=== PATIENT | female | born 1995 | race Caucasian/White ===

== ENCOUNTER 2017-11-05 12:31 | Emergency (ER) | payer OTHER ==
[~2017-11-05] VITALS: Ht 170.2 cm; Wt 55.9 kg
[2017-11-05 12:53] VITALS: TEMP 37; Ht 170.2 cm; Wt 55.9 kg
[2017-11-05] MEDS ORDERED: SODIUM CHLORIDE 0.9% 1000ML 1,000 ML IV STA ×2 (13:24)
[2017-11-05 13:56] LABS: BASO % 0.6 %; BASO ABS # 0.04 K/uL (0-0.2); EOS % 0.5 %; EOS ABS # 0.03 K/uL (0-0.5); HEMATOCRIT 39.9 % (37-47); HEMOGLOBIN 13.4 g/dL (12.0-16.0); IG# 0.01 K/uL (0.00-0.02); LYMPH % 18.7 %; LYMPH ABS # 1.17 K/uL (1.2-3.4); MEAN CELL VOLUME 85.1 fL (80-100); MEAN CORPUSCULAR HEMOGLOBIN 28.6 pg (25-34); MEAN CORPUSCULAR HGB CONC 33.6 g/dl (32-36); MEAN PLATELET VOLUME 10.2 fL (7.4-10.4); MONO % 5.9 %; MONO ABS # 0.37 K/uL (0.11-0.59); NEUT % 74.1 %; NEUT ABS # 4.65 K/uL (1.4-6.5); PLATELET COUNT 230 K/uL (130-400); RED CELL DISTRIBUTION WIDTH CV 12.2 % (11.5-14.5); RED CELL DISTRIBUTION WIDTH SD 37.6 fL (36.4-46.3); WHITE BLOOD COUNT 6.27 K/uL (4.8-10.8)
[2017-11-05] MEDS ORDERED: OPTIRAY 320 IV PRN (14:00)
[2017-11-05 14:11] LABS: ALT/SGPT 19 U/L (12-78); AST/SGOT 16 U/L (15-37); BLOOD UREA NITROGEN 12 mg/dl (7-18); CALCIUM 9.5 mg/dl (8.5-10.1); CARBON DIOXIDE 24 mmol/L (21-32); CREATININE 0.82 mg/dl (0.60-1.20); GLUCOSE 75 mg/dl (70-99); LIPASE 113 U/L (73-393); POTASSIUM 3.7 mmol/L (3.5-5.1); SODIUM 138 mmol/L (136-145)
[2017-11-05 14:14] LABS: ALKALINE PHOSPHATASE 59 U/L (45-117); TOTAL PROTEIN 7.6 gm/dl (6.4-8.2)
--- NOTE | 2017-11-05 16:15 | DIAGNOSTIC IMAGING REPORT ---
CT ABD/PELVIS IV AND ORAL CONT CLINICAL HISTORY: Generalized abdominal pain COMPARISON STUDY: None. TECHNIQUE: Following the IV administration of 115 mL of Optiray-320, CT scan of the abdomen and pelvis was performed from the lung bases to the proximal femurs. Images are reviewed in the axial, sagittal, and coronal planes. IV contrast was administered without complication. A dose lowering technique was utilized adhering to the principles of ALARA. CT DOSE: 302.14 mGy.cm FINDINGS: Lower chest: The heart is normal in size and configuration, without pericardial effusion. The lung bases and pleural spaces are clear. Liver: The contrast-enhanced liver is normal in size, contour, and attenuation. There is no intrahepatic biliary ductal dilatation. The hepatic veins and portal veins are patent. Gallbladder: Unremarkable. Spleen: Normal in size and attenuation. Pancreas: Unremarkable. Adrenal glands: Unremarkable. Kidneys: There is symmetric renal cortical enhancement. The kidneys are normal in size without hydronephrosis. Bowel: There are no transition zones indicate bowel obstruction. There is no evidence of acute appendicitis. There is no evidence of acute diverticulitis. Peritoneum: There is no intraperitoneal free air or abdominal ascites. Vasculature: The abdominal aorta is normal in course and caliber. Adenopathy: None. Pelvic viscera: The bladder, and pelvic viscera are unremarkable. Skeletal structures: No destructive osseous lesions are seen. IMPRESSION: 1. No acute intra-abdominal or pelvic findings 2. No evidence of bowel obstruction. No evidence of free air 3. Normal appendix. No evidence of acute diverticulitis. Electronically signed by: Will Fuentes M.D. 11/05/2017 4:14 PM Dictated Date/Time: 11/05/2017 4:11 PM
[2017-11-05 16:22] VITALS: BP 97/51; PULSE 57; O2SAT 100
--- NOTE | 2017-11-05 16:25 | EMERGENCY ROOM VISIT NOTE ---
History First contact with patient: 12:58 Chief Complaint: ABDOMINAL PAIN Stated Complaint: ABD PAIN - SENT FROM [facility] Nursing Triage Summary: Pt reports lower abd pain x 2 days. N/V. Denies urinary s/sx. History of Present Illness Patient is a 20-year-old female with past medical history significant for Crohn' s disease which is reportedly well controlled, who is referred to the emergency department by [facility] for evaluation of abdominal pain. Patient reports that she was diagnosed with Crohn's disease about a year ago while she was living and attending college in [facility]. She states that she was having abdominal pain and blood in her stools, and she underwent a thorough workup including laboratory studies and a colonoscopy. She reports that she is on a daily Pentasa rectal suppository, and her symptoms have been well controlled. She does not have a GI doctor locally. The patient states that she has had increased abdominal pain, decreased appetite and vomiting over the last 2-3 days. She states that she has some element of abdominal pain at all times, but states that this is worse. She describes diffuse lower abdominal pain, worse on the right than on the left. She does admit to nausea, and has tried to eat, but states that she vomits everything up. Bowel movements have been normal, she denies any bloody stools or diarrhea. She has not had a fever. Her last significant oral intake was 2 days ago. She does admit to fatigue. She is presently menstruating. She denies any significant gynecologic history including ovarian cysts. She denies any urinary symptoms or vaginal discharge. She denies any sick contacts, unusual food or water consumption. She traveled out of the country to [place] [facility] and [facility] in the last 30 days. The patient reports that she was seen at [facility], and referred to the emergency department for possible appendicitis. Review of Systems Review of systems as per HPI. All other systems reviewed were negative. 10 systems reviewed. Past Medical/Surgical History Medical Problems: (1) Anemia (2) Crohn's disease The patient does not have any old records available for review. H&P from [facility], and supplemental sheet was reviewed and agree with. Social History Smoking Status: Never Smoker Alcohol Use: occasionally Housing Status: lives with roommate Occupation Status: [employer] student Physical Exam Vital Signs Date Time Temp Pulse Resp B/P (MAP) Pulse Ox O2 Delivery O2 Flow Rate FiO2 11/05/17 16:22 57 16 97/51 100 Room Air 11/05/17 14:22 70 18 102/51 100 Room Air 11/05/17 12:53 37.0 91 18 113/69 97 Room Air Physical Exam CONSTITUTIONAL: Patient is a pleasant, well-appearing 20-year-old female who is awake and alert and in no acute distress. EYES: Pupils equal, round, reactive to light and accommodation. EOMs intact without nystagmus. Sclera are anicteric. ENT: Tympanic membranes intact, with normal landmarks. External canals are clear. Oral and nasopharynx are clear. Mucous membranes are moist, no lesions , tongue and gums appear normal. NECK: No bruits auscultated. Supple without lymphadenopathy. No thyromegaly. No meningeal signs. Full active range of motion without discomfort. CARDIOVASCULAR: Regular rate and rhythm, with normal S1 and S2, no murmur or gallop or rub is heard. No carotid bruits auscultated. No JVD. Peripheral pulses easily palpable. RESPIRATORY: Breath sounds equal and clear to auscultation without wheezes, rales, or rhonchi heard. Full and equal chest expansion without accessory muscle use or retractions. ABDOMEN: Bowel sounds are present. Abdomen is soft, scaphoid and nondistended. She is mildly tender to percussion throughout, particularly in the epigastric and right mid abdomen. She is tender to palpation in the right lower quadrant over McBurney's point and slightly in the left lower quadrant, with positive rebound and referred rebound tenderness. No CVA tenderness. INTEGUMENTARY: No lesions or rash, normal skin turgor. LYMPH: No lymphadenopathy. Medical Decision & Procedures ER Provider Diagnostic Interpretation: CT ABD/PELVIS IV AND ORAL CONT CLINICAL HISTORY: Generalized abdominal pain COMPARISON STUDY: None. TECHNIQUE: Following the IV administration of 115 mL of Optiray-320, CT scan of the abdomen and pelvis was performed from the lung bases to the proximal femurs. Images are reviewed in the axial, sagittal, and coronal planes. IV contrast was administered without complication. A dose lowering technique was utilized adhering to the principles of ALARA. CT DOSE: 302.14 mGy.cm FINDINGS: Lower chest: The heart is normal in size and configuration, without pericardial effusion. The lung bases and pleural spaces are clear. Liver: The contrast-enhanced liver is normal in size, contour, and attenuation. There is no intrahepatic biliary ductal dilatation. The hepatic veins and portal veins are patent. Gallbladder: Unremarkable. Spleen: Normal in size and attenuation. Pancreas: Unremarkable. Adrenal glands: Unremarkable. Kidneys: There is symmetric renal cortical enhancement. The kidneys are normal in size without hydronephrosis. Bowel: There are no transition zones indicate bowel obstruction. There is no evidence of acute appendicitis. There is no evidence of acute diverticulitis. Peritoneum: There is no intraperitoneal free air or abdominal ascites. Vasculature: The abdominal aorta is normal in course and caliber. Adenopathy: None. Pelvic viscera: The bladder, and pelvic viscera are unremarkable. Skeletal structures: No destructive osseous lesions are seen. IMPRESSION: 1. No acute intra-abdominal or pelvic findings 2. No evidence of bowel obstruction. No evidence of free air 3. Normal appendix. No evidence of acute diverticulitis. Laboratory Results 11/05/17 13:35 Red Blood Count 4.69, Mean Corpuscular Volume 85.1, Mean Corpuscular Hemoglobin 28.6, Mean Corpuscular Hemoglobin Concent 33.6, Mean Platelet Volume 10.2, Neutrophils (%) (Auto) 74.1, Lymphocytes (%) (Auto) 18.7, Monocytes (%) (Auto) 5.9, Eosinophils (%) (Auto) 0.5, Basophils (%) (Auto) 0.6, Neutrophils # (Auto) 4.65, Lymphocytes # (Auto) 1.17, Monocytes # (Auto) 0.37, Eosinophils # (Auto) 0.03, Basophils # (Auto) 0.04 11/05/17 13:35 Test 11/05/17 13:35 11/05/17 15:15 White Blood Count 6.27 K/uL (4.8-10.8) Red Blood Count 4.69 M/uL (4.2-5.4) Hemoglobin 13.4 g/dL (12.0-16.0) Hematocrit 39.9 % (37-47) Mean Corpuscular Volume 85.1 fL (80-100) Mean Corpuscular Hemoglobin 28.6 pg (25-34) Mean Corpuscular Hemoglobin Concent 33.6 g/dl (32-36) Platelet Count 230 K/uL (130-400) Mean Platelet Volume 10.2 fL (7.4-10.4) Neutrophils (%) (Auto) 74.1 % Lymphocytes (%) (Auto) 18.7 % Monocytes (%) (Auto) 5.9 % Eosinophils (%) (Auto) 0.5 % Basophils (%) (Auto) 0.6 % Neutrophils # (Auto) 4.65 K/uL (1.4-6.5) Lymphocytes # (Auto) 1.17 K/uL (1.2-3.4) Monocytes # (Auto) 0.37 K/uL (0.11-0.59) Eosinophils # (Auto) 0.03 K/uL (0-0.5) Basophils # (Auto) 0.04 K/uL (0-0.2) RDW Standard Deviation 37.6 fL (36.4-46.3) RDW Coefficient of Variation 12.2 % (11.5-14.5) Immature Granulocyte % (Auto) 0.2 % Immature Granulocyte # (Auto) 0.01 K/uL (0.00-0.02) Erythrocyte Sedimentation Rate 13 mm/hr (0-21) Anion Gap 10.0 mmol/L (3-11) Est Creatinine Clear Calc Drug Dose 94.2 ml/min Estimated GFR () 116.9 Estimated GFR (Non- 100.9 BUN/Creatinine Ratio 15.1 (10-20) Calcium Level 9.5 mg/dl (8.5-10.1) Total Bilirubin 2.1 mg/dl (0.2-1) Aspartate Amino Transf (AST/SGOT) 16 U/L (15-37) Alanine Aminotransferase (ALT/SGPT) 19 U/L (12-78) Alkaline Phosphatase 59 U/L (45-117) C-Reactive Protein < 0.29 mg/dl (0-0.29) Total Protein 7.6 gm/dl (6.4-8.2) Albumin 4.0 gm/dl (3.4-5.0) Globulin 3.6 gm/dl (2.5-4.0) Albumin/Globulin Ratio 1.1 (0.9-2) Lipase 113 U/L (73-393) Human Chorionic Gonadotropin, Qual NEG (NEG) Urine Color ORANGE Urine Appearance CLEAR (CLEAR) Urine pH 5.5 (4.5-7.5) Urine Specific [place] 1.018 (1.000-1.030) Urine Protein NEG (NEG) Urine Glucose (UA) NEG (NEG) Urine Ketones 2+ (NEG) Urine Occult Blood 3+ (NEG) Urine Nitrite NEG (NEG) Urine Bilirubin NEG (NEG) Urine Urobilinogen NEG (NEG) Urine Leukocyte Esterase SMALL (NEG) Urine WBC (Auto) 5-10 /hpf (0-5) Urine RBC (Auto) >30 /hpf (0-4) Urine Hyaline Casts (Auto) 1-5 /lpf (0-5) Urine Epithelial Cells (Auto) >30 /lpf (0-5) Urine Bacteria (Auto) NEG (NEG) Medications Administered Medications (Trade) Dose Ordered Sig/Avis Route Start Time Stop Time Status Last Admin Dose Admin Sodium Chloride 1,000 ml @ 999 mls/hr Q1H1M STAT IV 11/05/17 13:24 11/05/17 14:24 DC 11/05/17 13:24 999 MLS/HR Sodium Chloride 1,000 ml @ 250 mls/hr Q4H STAT IV 11/05/17 13:24 11/05/17 17:23 DC 11/05/17 13:24 250 MLS/HR ED Course The patient was seen and evaluated as above. She has a known history of Crohn' s disease which is reportedly well controlled, but has had increased right- sided abdominal pain with associated nausea, vomiting and anorexia over the last 2-3 days. She was seen at [facility] and referred to the emergency department for possible appendicitis. IV lock was initiated. She was hydrated with normal saline solution. She declined any medication needs while in the emergency department. Laboratory studies were collected including CBC with differential, sedimentation rate, CRP, CMP, lipase, serum hCG and urinalysis. Given her past medical history, right lower quadrant pain, CT scan of the abdomen and pelvis with IV and oral contrast was ordered. The patient's laboratory studies revealed a normal white count at 6200, no left shift or bandemia. H&H 13.4 and 39.9, which are within normal limits, indices are also not indicative of anemia. Sedimentation rate and CRP are not elevated. Electrolytes and renal function are within normal limits. Total bilirubin is 2.1, otherwise remainder of her LFTs are normal. Lipase is not elevated. Serum hCG is negative. Urinalysis was grossly contaminated with menstrual blood, otherwise noted to both ketones and a small amount of leuk esterase and WBCs, no bacteria and therefore is not felt to indicate UTI. The patient remained comfortable and hemodynamically stable while in the emergency department. She tolerated her CT prep without difficulty. CT scan of the abdomen and pelvis was essentially unremarkable. There is no evidence for bowel obstruction, free air, acute diverticulitis or appendicitis. Kidneys were normal without evidence for hydronephrosis. There was no pelvic abnormalities noted. All laboratory and diagnostic imaging studies were reviewed with the patient at length. She does have a history of Crohn's disease, there does not appear to be any significant findings on CT scan. No elevation of her white count or her inflammatory markers. Differential diagnoses entertained included UTI, pyelonephritis, renal colic, ovarian cyst, ovarian torsion, , ectopic , PID, tubo-ovarian abscess, appendicitis, bowel obstruction, perforation, abscess, Crohn's exacerbation, viral illness, musculoskeletal pain , hernia, shingles, among others. The patient was encouraged to rest and follow a clear/soft diet, advance as tolerated. She was advised to follow-up with [facility] this week for recheck, and was encouraged to seek a referral from [facility] for a GI specialist who can manage her while she is here as a student. The patient expressed understanding of this and was agreeable. She is discharged home in stable condition with her friend, rating her pain a 0/10 at discharge. Medical Decision See Emergency Department course. Medication Reconcilliation Current Medication List: was personally reviewed by la Blood Pressure Screening Patient's blood pressure: Low blood pressure Blood pressure disposition: Did not require urgent referral Impression Primary Impression: Right lower quadrant abdominal pain Additional Impression: Crohns disease Departure Information Referrals Ashly Guerra PA-C (PCP) Patient Instructions [facility] Additional Instructions Acetaminophen(Tylenol) may be used for fever or pain. Use 1000mg every eight hours as needed. Avoid using more than 3000mg in a 24 hour period. This is available over the counter. Rest and drink plenty of fluids as tolerated. Slow sips of water or sports drinks are recommended instead of large amounts all at once. Continue current medications. Once your stomach is settled start with a clear liquid diet (jello, soup broth, etc.) and then advance as tolerated. You should avoid full, heavy meals for about 24 hrs from the time your symptoms resolved. Return to the ER immediately for worsening or persistent abdominal pain, vomiting, fevers, chest pains, difficulty breathing, black or bloody stools, worsening of your condition, or as needed. Follow up with your primary physician in 1-2 days for a recheck of your current condition. Establish care with local gastroenterology for further care and evaluation of your Crohn's disease. Problem Qualifiers
== END 2017-11-05 16:49 | disposition home or self-care (01) ==
LOC: C.EDB 12:35 → EDBD 12:35 → C.EDC 16:49
DX: R10.31 Right lower quadrant pain (principal); K50.90 Crohn's disease, unspecified, without complications; R03.1 Nonspecific low blood-pressure reading